=== PATIENT | female | born 1995 | race Hispanic/Latino ===

== ENCOUNTER 2022-12-27 19:19 | Emergency (ER) | payer OTHER ==
[~2022-12-27 19:19] MED LIST: Iopamidol 370 76% 100 ML VIAL ONE
[2022-12-27] MEDS ORDERED: Tetracaine 0.5% PF 4 ML BOT ONE (20:18)
[2022-12-27] MEDS ORDERED: Acetaminophen 500 MG TAB ONE (20:38)
[2022-12-27 20:56] LABS: #Basophils 0.1 10x3/uL (0.0-0.2); #Eosinphils 0.5 10x3/uL (0.0-0.5); #Neutrophils 7.7 10x3/uL (1.5-8.4); %Basophils 0.7 % (0.0-2.0); %Eosinophils 4.1 % (0.0-6.0); %Lymphocytes 19.3 % (18.0-47.0); %Monocytes 8.2 % (0.0-10.0); %Neutrophils 66.3 % (40.0-75.0); Hemoglobin 11.8 g/dL (12.0-15.5); Mean Corpuscular HGB CONC 34.7 g/dL (32.0-36.0); Mean Corpuscular Hemoglobin 30.3 pg (27.0-33.0); Mean Corpuscular Volume 87.2 fl (81.6-98.3); Mean Platelet Volume 10.8 fl (7.4-10.4); Platelet Count 219 10x3/uL (150-450); RBC Distribution Width 13.2 % (11.5-14.5); White Blood Cell (WBC) Count 11.7 10x3/uL (3.5-10.5)
[2022-12-27 21:11] LABS: Anion Gap 16 mmol/L (10-20); BUN (Urea Nitrogen) 6 mg/dL (7.0-18.7); CRP (Inflammatory) Less than 0.50 mg/dL (= or < 0.5); Calc. Creatinine Clearance 0 mL/min (70-130); Calcium 8.6 mg/dL (7.8-10.44); Carbon Dioxide 17 mmol/L (22-29); Chloride 108 mmol/L (98-107); Estimated GFR 128; Glucose 102 mg/dL (70-105); Potassium 3.6 mmol/L (3.5-5.1); Sodium 137 mmol/L (136-145)
== END 2022-12-27 23:20 | disposition home or self-care (01) ==
LOC: CSHERS 19:19
DX: O99.713 Diseases of the skin and subcutaneous tissue complicating pregnancy, third trimester (principal); L03.213 Periorbital cellulitis; Z3A.31 31 weeks gestation of pregnancy
CPT/HCPCS: 70496; 80048; 85025; 85652; 86140; Q9967

== ENCOUNTER 2023-02-25 02:05 | Inpatient (IN) | payer MEDICAID, OTHER, SELFPAY ==
[2023-02-25 02:30] VITALS: BMI 35.2
[2023-02-25] MEDS ORDERED: hydrALAZINE 20 MG/ML VIAL SLOW IVP PRN ×3 (02:32→21:48)
[2023-02-25] MEDS ORDERED: Ondansetron PF 4 MG/2 ML Vial IVP PRN ×3 (02:34→21:48)
[2023-02-25] MEDS ORDERED: Ibuprofen 800 MG TAB PO PRN (02:34)
[2023-02-25] MEDS ORDERED: HYDROcodone/Acetaminophen 5/325 mg Tablet PO PRN ×2 (02:34→21:48)
[2023-02-25] MEDS ORDERED: fentaNYL 50 mcg/mL 1 mL Vial SLOW IVP PRN (02:34)
[2023-02-25] MEDS ORDERED: Carboprost 250 MCG/ML AMP IM PRN (02:34)
[2023-02-25] MEDS ORDERED: Acetaminophen 500 MG TAB PO PRN (02:34)
[2023-02-25] MEDS ORDERED: Promethazine HCl 25 MG/ML VIAL IM PRN ×3 (02:34→21:48)
[2023-02-25] MEDS ORDERED: Methylergonovine 0.2 MG/ML VIAL IM PRN (02:34)
[2023-02-25] MEDS ORDERED: Lidocaine 1% (PF) 30 ML VIAL SC PRN (02:34)
[2023-02-25] MEDS ORDERED: Diphenoxylate HCl/Atropine Tablet PO PRN (02:34)
[2023-02-25] MEDS ORDERED: NS w/ Oxytocin 30 units 500 ML IV SCH ×3 (03:00)
[2023-02-25 03:19] LABS: Hemoglobin 12.4 g/dL (12.0-15.5); Mean Corpuscular HGB CONC 34.9 g/dL (32.0-36.0); Mean Platelet Volume 10.9 fl (7.4-10.4); Platelet Count 214 10x3/uL (150-450); RBC Distribution Width 13.3 % (11.5-14.5); Red Blood Cell (RBC) Count 4.13 10x6/uL (3.90-5.03); White Blood Cell (WBC) Count 9.8 10x3/uL (3.5-10.5)
[2023-02-25 03:51] LABS: HBSAg Index 0.17 S/CO (0-0.99); Hep B Surf Ag - L&D Non-Reactive S/CO (NonReactive)
[2023-02-25 04:09] LABS: Syphilis Antibody Index 4.86 S/CO (<1.00 Non-Reactive)
[2023-02-25 04:11] LABS: Syphilis Antibody INDETERMINATE (Nonreactive)
[2023-02-25 04:13] LABS: Syphilis Titer Non-Reactive Titer (Negative)
[2023-02-25] MEDS ORDERED: Terbutaline Sulfate 1 MG/ML VIAL ONE (07:39)
[2023-02-25] MEDS ORDERED: Bupivacaine 0.25% HCL 30 ML VIAL ONE (08:00)
[2023-02-25] MEDS ORDERED: fentaNYL/Ropivacaine Epidural 100 ML ONE (17:01)
[2023-02-25] MEDS: Lactated Ringer's 1,000 ML IV SCH ×2 (17:23→19:10)
[2023-02-25] MEDS ORDERED: Acetaminophen 325 MG TAB PO PRN (17:49)
[2023-02-25] MEDS ORDERED: diphenhydrAMINE 50 MG/ML VIAL IVP PRN (17:49)
[2023-02-25] MEDS ORDERED: Moisturizing Cream (Eucerin) 113 GM JAR TOP PRN (17:49)
[2023-02-25] MEDS ORDERED: ePHEDrine Sulfate 50 MG/10 ML VIAL SLOW IVP PRN (17:49)
[2023-02-25] MEDS ORDERED: Naloxone HCl 0.4 mg/ml Vial IVP PRN ×2 (17:49)
[2023-02-25] MEDS ORDERED: Lactated Ringer's 500 ML IV PRN (17:49)
[2023-02-25] MEDS ORDERED: Communication Order-Pharmacy FS SCH (18:00)
[2023-02-25] MEDS ORDERED: fentaNYL 2 mcg/Ropivacaine 0.2% Epidural 100 ML CADD EPIDURAL SCH (18:00)
[2023-02-25] MEDS ORDERED: Lanolin Ointment 7 GM TUBE TOP PRN (21:48)
[2023-02-25] MEDS ORDERED: Benzocaine-Menthol 82.5 ML CAN TOP PRN (21:48)
[2023-02-25] MEDS ORDERED: diphenhydrAMINE 25 MG CAP PO PRN (21:48)
[2023-02-25] MEDS ORDERED: Milk Of Magnesia 30 ML UDCUP PO PRN (21:48)
[2023-02-25] MEDS ORDERED: Boostrix 0.5 ML (Tdap) VIAL (>/=7 yrs of age) IM ONE (21:48)
[2023-02-25] MEDS ORDERED: Bisacodyl 10 MG SUPP PR PRN (21:48)
[2023-02-25] MEDS ORDERED: Docusate 100 MG CAP PO SCH (22:15)
[2023-02-25] MEDS: Ibuprofen 800 MG TAB PO SCH (22:22)
[2023-02-26] MEDS: Ibuprofen 800 MG TAB PO SCH ×3 (05:09→22:17)
[2023-02-26] MEDS ORDERED: Ferrous Sulfate 325 MG TAB PO SCH (08:00)
[2023-02-26] MEDS: Docusate 100 MG CAP PO SCH ×2 (08:00→22:17)
[2023-02-26] MEDS ORDERED: Prenatal Vitamin 1 TAB PO SCH (09:00)
[2023-02-26 21:51] VITALS: BP 114/76; TEMP 98.2
== END 2023-02-26 22:45 | disposition home or self-care (01) | DRG 807 ==
LOC: CSHLD/OP 02:05 → CSHLD 02:38 → CSHPP 20:50
PROVIDERS: ADMIT Family Medicine; ATTEND Family Medicine
PROC: 10E0XZZ Delivery of Products of Conception, External Approach (ICD-10-PCS; principal; 2023-02-25)
PROC: 10907ZC Drainage of Amniotic Fluid, Therapeutic from Products of Conception, Via Natural or Artificial Opening (ICD-10-PCS; 2023-02-25)
PROC: 10H07YZ Insertion of Other Device into Products of Conception, Via Natural or Artificial Opening (ICD-10-PCS; 2023-02-25)
PROC: 0UQGXZZ Repair Vagina, External Approach (ICD-10-PCS; 2023-02-25)
DX: O71.4 Obstetric high vaginal laceration alone (principal); Z37.0 Single live birth; Z3A.39 39 weeks gestation of pregnancy; Z79.899 Other long term (current) drug therapy
CPT/HCPCS: 51702; 85027; 86593; 86780; 86850; 86900; 86901; 87340; 99285; J2590; J7120; S0020

== ENCOUNTER 2024-01-19 23:08 | Emergency (ER) | payer MEDICAID ==
[2024-01-20] MEDS ORDERED: Ipratropium/Albuterol 3 ML NEB ONE (01:25)
== END 2024-01-20 02:58 | disposition home or self-care (01) ==
LOC: CSHERS 23:08
DX: J20.9 Acute bronchitis, unspecified (principal); I10 Essential (primary) hypertension
CPT/HCPCS: 71045; 93005; 94640; J7620

== ENCOUNTER 2024-07-25 22:53 | Emergency (ER) | payer MEDICAID, SELFPAY ==
[2024-07-25] MEDS ORDERED: Acetaminophen 500 MG TAB ONE (23:33)
[2024-07-25 23:48] LABS: #Basophils 0.08 10x3/uL (0.0-0.2); #Eosinophils 0.13 10x3/uL (0.0-0.5); #Monocytes 0.73 10x3/uL (0.0-1.1); #Neutrophils 8.35 10x3/uL (1.5-8.4); %Basophils 0.7 % (0.0-2.0); %Eosinophils 1.2 % (0.0-6.0); %Lymphocytes 15.9 % (18.0-47.0); %Monocytes 6.6 % (0.0-10.0); %Neutrophils 75.1 % (40.0-75.0); Hematocrit 39.9 % (34.9-44.5); Hemoglobin 13.4 g/dL (12.0-15.5); Mean Corpuscular HGB CONC 33.6 g/dL (32.0-36.0); Mean Corpuscular Volume 89.3 fL (81.6-98.3); Mean Platelet Volume 10.9 fL (7.4-10.4); Platelet Count 204 10x3/uL (150-450); RBC Distribution Width 12.3 % (11.5-14.5); Red Blood Cell (RBC) Count 4.47 10x6/uL (3.90-5.03); White Blood Cell (WBC) Count 11.1 10x3/uL (3.5-10.5)
[2024-07-25 23:48] LABS: Bilirubin Neg (Negative); Blood, Urine 150 (Negative); Clarity Clear (Clear); Glucose, Urine (Dipstick) Normal (Negative); Ketone, Urine Negative (Negative); Leukocyte 100 (Negative); Nitrite Negative (Negative); Protein, Urine (Dipstick) Negative (Neg-Trace); Urobilinogen Normal mg/dL (Less than 2)
[2024-07-26 00:04] LABS: BHCG - Serum POSITIVE (NEGATIVE); Pregs Control Background? CLEAR/WHITE (CLR/WHITE); Pregs Control Bar Appear? YES (CONTROL BAR)
[2024-07-26 00:13] LABS: ALT (SGPT) 63 U/L (8-55); AST (SGOT) 41 U/L (5-34); Albumin 4.1 g/dL (3.5-5.0); Alkaline Phosphatase 65 U/L (40-110); Anion Gap 12 mmol/L (10-20); BUN (Urea Nitrogen) 10 mg/dL (7.0-18.7); Bilirubin, Total 0.5 mg/dL (0.2-1.2); Calc. Creatinine Clearance 0 mL/min (70-130); Calcium 9.2 mg/dL (7.8-10.44); Carbon Dioxide 23 mmol/L (22-29); Chloride 109 mmol/L (98-107); Estimated GFR 119; Globulin 2.8 g/dL (2.4-3.5); Glucose 84 mg/dL (70-105); Lipase 32 U/L (8-78); Potassium 4.2 mmol/L (3.5-5.1); Protein, Total 6.9 g/dL (6.0-8.3); Sodium 140 mmol/L (136-145)
[2024-07-26 00:35] LABS: Bacteria/HPF 1+ HPF (None Seen); CAUTI Indications for Culture Pelvic or flank pain; Yeast-Budding 1+ HPF (None Seen)
[2024-07-26 00:36] LABS: Urine Culture Reflex No No
[2024-07-26] MEDS ORDERED: Cephalexin 250 MG CAP ONE (01:41)
[2024-07-26] MEDS ORDERED: Fluconazole 100 MG TAB PO SCH (02:00)
[2024-07-26 19:17] LABS: GC by PCR, Vaginal Swab Not Detected (NotDetected)
== END 2024-07-26 01:50 | disposition home or self-care (01) ==
LOC: CSHERS 22:53
DX: O23.41 Unspecified infection of urinary tract in pregnancy, first trimester (principal); N39.0 Urinary tract infection, site not specified; O98.811 Other maternal infectious and parasitic diseases complicating pregnancy, first trimester; B37.31 Acute candidiasis of vulva and vagina; Z3A.01 Less than 8 weeks gestation of pregnancy; Z55.0 Illiteracy and low-level literacy
CPT/HCPCS: 36415; 76856; 80053; 81001; 83690; 84702; 84703; 85025; 87480; 87510; 87591; 87660

== ENCOUNTER 2024-07-29 18:39 | Emergency (ER) | payer SELFPAY ==
[2024-07-29 19:53] LABS: #Basophils 0.02 10x3/uL (0.0-0.2); #Eosinophils 0.03 10x3/uL (0.0-0.5); #Monocytes 0.53 10x3/uL (0.0-1.1); #Neutrophils 2.62 10x3/uL (1.5-8.4); %Basophils 0.4 % (0.0-2.0); %Eosinophils 0.6 % (0.0-6.0); %Lymphocytes 31.7 % (18.0-47.0); %Monocytes 11.3 % (0.0-10.0); %Neutrophils 55.8 % (40.0-75.0); Hematocrit 41.3 % (34.9-44.5); Hemoglobin 14.3 g/dL (12.0-15.5); Mean Corpuscular HGB CONC 34.6 g/dL (32.0-36.0); Mean Corpuscular Hemoglobin 30.6 pg (27.0-33.0); Mean Corpuscular Volume 88.4 fL (81.6-98.3); Mean Platelet Volume 10.9 fL (7.4-10.4); Platelet Count 165 10x3/uL (150-450); RBC Distribution Width 12.4 % (11.5-14.5); Red Blood Cell (RBC) Count 4.67 10x6/uL (3.90-5.03); White Blood Cell (WBC) Count 4.7 10x3/uL (3.5-10.5)
[2024-07-29 20:14] LABS: ALT (SGPT) 121 U/L (8-55); AST (SGOT) 71 U/L (5-34); Alkaline Phosphatase 63 U/L (40-110); Anion Gap 13 mmol/L (10-20); BUN (Urea Nitrogen) 7 mg/dL (7.0-18.7); Bilirubin, Total 0.3 mg/dL (0.2-1.2); Calc. Creatinine Clearance 0 mL/min (70-130); Calcium 8.8 mg/dL (7.8-10.44); Carbon Dioxide 23 mmol/L (22-29); Chloride 106 mmol/L (98-107); Estimated GFR 124; Globulin 3.1 g/dL (2.4-3.5); Glucose 80 mg/dL (70-105); Potassium 3.9 mmol/L (3.5-5.1); Protein, Total 7.1 g/dL (6.0-8.3); Sodium 138 mmol/L (136-145)
== END 2024-07-29 21:50 | disposition home or self-care (01) ==
LOC: CSHERS 18:39
DX: O20.0 Threatened abortion (principal); J02.9 Acute pharyngitis, unspecified; Z3A.01 Less than 8 weeks gestation of pregnancy
CPT/HCPCS: 36415; 76856; 80053; 84702; 85025

== ENCOUNTER 2024-09-04 17:11 | Emergency (ER) | payer MEDICAID, SELFPAY ==
[2024-09-04] MEDS ORDERED: Ketorolac Tromethamine 30 MG (1 mL) VIAL ONE (18:57)
[2024-09-04] MEDS ORDERED: diphenhydrAMINE 50 MG/ML VIAL ONE (18:57)
[2024-09-04] MEDS ORDERED: Ondansetron PF 4 MG/2 ML Vial ONE (18:57)
== END 2024-09-04 20:32 | disposition home or self-care (01) ==
LOC: CSHERS 17:11
DX: R51.9 Headache, unspecified (principal)
CPT/HCPCS: 70450; 96374; 96375; J1200; J1885; J2405

== ENCOUNTER 2025-06-24 17:35 | Emergency (ER) | payer OTHER, SELFPAY ==
[2025-06-24 18:52] LABS: CAUTI Indications for Culture Pelvic or flank pain; Glucose, Urine (Dipstick) Normal (Negative); Leukocyte 500 (Negative); Protein, Urine (Dipstick) 100 mg/dl (Neg-Trace); RBC/HPF Greater than 50 HPF (0-3); Specific Gravity, Urine 1.010 (1.005-1.030)
[2025-06-24 18:53] LABS: Bacteria/HPF 1+ HPF (None Seen); Urine Culture Reflex Yes Yes
[2025-06-24 19:30] LABS: #Basophils 0.07 10x3/uL (0.0-0.2); #Eosinophils 0.18 10x3/uL (0.0-0.5); #Monocytes 0.98 10x3/uL (0.0-1.1); #Neutrophils 6.54 10x3/uL (1.5-8.4); %Basophils 0.7 % (0.0-2.0); %Eosinophils 1.7 % (0.0-6.0); %Lymphocytes 24.4 % (18.0-47.0); %Monocytes 9.5 % (0.0-10.0); %Neutrophils 63.2 % (40.0-75.0); Hematocrit 42.3 % (34.9-44.5); Hemoglobin 14.7 g/dL (12.0-15.5); Mean Corpuscular Hemoglobin 30.1 pg (27.0-33.0); Mean Corpuscular Volume 86.7 fL (81.6-98.3); Platelet Count 235 10x3/uL (150-450); Red Blood Cell (RBC) Count 4.88 10x6/uL (3.90-5.03); White Blood Cell (WBC) Count 10.35 10x3/uL (3.5-10.5)
[2025-06-24 19:40] LABS: BHCG - Serum Indeterminate (NEGATIVE); Pregs Control Background? CLEAR/WHITE (CLR/WHITE); Pregs Control Bar Appear? YES (CONTROL BAR)
[2025-06-24 19:45] LABS: ALT (SGPT) 61 U/L (Less than 34); AST (SGOT) 43 U/L (11-34); Albumin 4.2 g/dL (3.1-4.5); Alkaline Phosphatase 83 U/L (40-110); Anion Gap 11 mmol/L (10-20); BUN (Urea Nitrogen) 12 mg/dL (7.0-18.7); Bilirubin, Total 0.3 mg/dL (0.3-1.2); Calc. Creatinine Clearance 0 mL/min (70-130); Calcium 8.9 mg/dL (7.8-10.44); Carbon Dioxide 24 mmol/L (22-29); Chloride 108 mmol/L (98-107); Globulin 2.9 g/dL (2.4-3.5); Glucose 93 mg/dL (70-105); Potassium 3.8 mmol/L (3.5-5.1); Sodium 139 mmol/L (136-145)
== END 2025-06-24 20:25 | disposition home or self-care (01) ==
LOC: CSHERS 17:35
DX: O20.0 Threatened abortion (principal); O13.9 Gestational [pregnancy-induced] hypertension without significant proteinuria, unspecified trimester; Z3A.01 Less than 8 weeks gestation of pregnancy
CPT/HCPCS: 76856; 80053; 81001; 84702; 84703; 86900; 86901; 87086